=== PATIENT | male | born 1970 | race African-American/Black ===

== ENCOUNTER 2024-11-17 14:46 | Inpatient (IN) | payer OTHER ==
[~2024-11-17] VITALS: Ht 177.8 cm; Wt 73.0 kg
[2024-11-17] MEDS ORDERED: THIAMINE HCL 100 MG TABLET ONE (15:30)
[2024-11-17] MEDS: IV NS 0.9% 1,000 ML BAG IV ONE (15:41)
[2024-11-17] MEDS: IV LR 1000 ML 1,000 ML BAG IV ONE (15:42)
[2024-11-17] MEDS: THIAMINE HCL 100 MG TABLET PO ONE (15:42)
[2024-11-17 15:50] LABS: BASOPHILS # (AUTO) 0.1 K/uL (0.0-0.2); BASOPHILS % (AUTO) 0.9 % (0.0-2.0); EOSINOPHILS % (AUTO) 0.2 % (0.0-6.0); HEMATOCRIT 41 % (39-51); HEMOGLOBIN 14.1 g/dL (13.5-17.5); LYMPHOCYTES # (AUTO) 1.8 K/uL (0.8-4.8); LYMPHOCYTES % (AUTO) 31.6 % (20.0-44.0); MEAN CORPUSCULAR HEMOGLOBIN 33 PG (26.0-33.0); MEAN CORPUSCULAR HGB CONC 34 g/dl (31.0-36.0); MEAN CORPUSCULAR VOLUME 95 fL (80-96); MONOCYTES # (AUTO) 0.6 K/uL (0.1-1.30); MONOCYTES % (AUTO) 10.7 % (2.0-12.0); NEUTROPHILS # (AUTO) 3.2 K/uL (1.8-8.9); NEUTROPHILS % (AUTO) 56.6 % (43.0-81.0); PLATELET COUNT (AUTO) 205 K/uL (150-450); RED BLOOD CELL COUNT(AUTO) 4.32 MIL/uL (4.5-6.0); RED CELL DISTRIBUTION WIDTH 15.6 % (11.5-15.0); WHITE BLOOD COUNT (AUTO) 5.6 K/uL (4.3-11.0)
[2024-11-17 15:59] LABS: CALCIUM, SERUM 8.6 mg/dL (8.5-10.1); CARBON DIOXIDE 27 mmol/L (21-32); CHLORIDE 102 mmol/L (98-107); CREATININE 0.7 mg/dL (0.6-1.3); GLUCOSE 101 mg/dL (74-106); POTASSIUM 3.8 mmol/L (3.5-5.1); SODIUM SERUM 140 mmol/L (136-145); UREA NITROGEN, BLOOD 8 mg/dL (7-18)
[2024-11-17 16:05] LABS: ALANINE AMINOTRANSFERASE 143 U/L (12-78); ALBUMIN 3.9 g/dL (3.4-5.0); ALKALINE PHOSPHATASE 107 U/L (46-116); ASPARTATE AMINOTRANSFERASE 118 U/L (15-37); BILIRUBIN,DIRECT 0.1 mg/dL (0.0-0.2); BILIRUBIN,TOTAL 0.3 mg/dL (0.2-1.0); TOTAL PROTEIN, SERUM 7.4 g/dL (6.4-8.2)
[2024-11-17] MEDS ORDERED: ASPIRIN 81 MG TAB.CHEW ONE (16:29)
[2024-11-17] MEDS ORDERED: FAMOTIDINE/PF INJ 20 MG/2 ML VIAL IV ONE (16:30)
[2024-11-17] MEDS: FAMOTIDINE/PF INJ 20 MG/2 ML VIAL IV ONE (16:39)
[2024-11-17] MEDS: ASPIRIN 81 MG TAB.CHEW PO ONE (16:40)
[2024-11-17] MEDS ORDERED: ACETAMINOPHEN 325 MG TABLET PO PRN (23:30)
[2024-11-17] MEDS ORDERED: LORAZEPAM INJ 2 MG/ML VIAL IV PRN (23:30)
[2024-11-18] MEDS: IV NS 0.9% 1,000 ML IV PRN (00:32)
[2024-11-18 01:15] VITALS: BP 147/77; TEMP 98.4; O2SAT 96
[2024-11-18 04:00] VITALS: BP 169/100; TEMP 98.1; O2SAT 96
[2024-11-18 05:53] LABS: BASOPHILS # (AUTO) 0.1 K/uL (0.0-0.2); BASOPHILS % (AUTO) 0.7 % (0.0-2.0); EOSINOPHILS % (AUTO) 0.7 % (0.0-6.0); HEMATOCRIT 40 % (39-51); HEMOGLOBIN 13.7 g/dL (13.5-17.5); LYMPHOCYTES # (AUTO) 1.6 K/uL (0.8-4.8); LYMPHOCYTES % (AUTO) 22.1 % (20.0-44.0); MEAN CORPUSCULAR HEMOGLOBIN 33 PG (26.0-33.0); MEAN CORPUSCULAR HGB CONC 35 g/dl (31.0-36.0); MEAN CORPUSCULAR VOLUME 96 fL (80-96); MONOCYTES # (AUTO) 0.8 K/uL (0.1-1.30); MONOCYTES % (AUTO) 11.2 % (2.0-12.0); NEUTROPHILS # (AUTO) 4.8 K/uL (1.8-8.9); NEUTROPHILS % (AUTO) 65.3 % (43.0-81.0); PLATELET COUNT (AUTO) 170 K/uL (150-450); RED BLOOD CELL COUNT(AUTO) 4.13 MIL/uL (4.5-6.0); WHITE BLOOD COUNT (AUTO) 7.4 K/uL (4.3-11.0)
[2024-11-18 06:13] LABS: CALCIUM, SERUM 8.9 mg/dL (8.5-10.1); CREATININE 0.5 mg/dL (0.6-1.3); MAGNESIUM 1.7 mg/dL (1.8-2.4); PHOSPHORUS 3.7 mg/dL (2.5-4.9); POTASSIUM 3.5 mmol/L (3.5-5.1)
[2024-11-18 08:00] VITALS: BP 162/98; TEMP 97.9; O2SAT 98
[2024-11-18] MEDS: FOLIC ACID 1 MG TABLET PO SCH (08:07)
[2024-11-18] MEDS: PANTOPRAZOLE 40 MG TABLET.DR PO SCH (08:07)
[2024-11-18] MEDS: THIAMINE HCL 100 MG TABLET PO SCH (08:07)
[2024-11-18] MEDS ORDERED: ATEN25TA PO (08:18)
[2024-11-18] MEDS ORDERED: ALLO100T PO (08:18)
[2024-11-18] MEDS: MAGNESIUM OXIDE 400 MG TABLET PO ONE (11:07)
[2024-11-18] MEDS: ONDANSETRON HCL/PF 4 MG/2 ML VIAL IVP PRN (11:07)
[2024-11-18] MEDS: ATENOLOL 25 MG TABLET PO ONE (11:17)
[2024-11-18 12:00] VITALS: BP 174/97; TEMP 97.3; O2SAT 95
[2024-11-18 16:00] VITALS: BP 143/97; TEMP 97.9; O2SAT 98
[2024-11-18 20:00] VITALS: BP 153/90; TEMP 97.7; O2SAT 97
[2024-11-19] VITALS: BP 155/99; TEMP 97.7; O2SAT 95
[2024-11-19 04:00] VITALS: BP 142/91; TEMP 97.7; O2SAT 97
[2024-11-19 06:52] LABS: BASOPHILS % (AUTO) 0.6 % (0.0-2.0); EOSINOPHILS # (AUTO) 0.1 K/uL (0.0-0.7); EOSINOPHILS % (AUTO) 1.6 % (0.0-6.0); HEMATOCRIT 39 % (39-51); HEMOGLOBIN 13.6 g/dL (13.5-17.5); LYMPHOCYTES # (AUTO) 1.6 K/uL (0.8-4.8); LYMPHOCYTES % (AUTO) 25.2 % (20.0-44.0); MEAN CORPUSCULAR HEMOGLOBIN 34 PG (26.0-33.0); MEAN CORPUSCULAR HGB CONC 35 g/dl (31.0-36.0); MEAN CORPUSCULAR VOLUME 97 fL (80-96); MONOCYTES # (AUTO) 0.9 K/uL (0.1-1.30); MONOCYTES % (AUTO) 14.2 % (2.0-12.0); NEUTROPHILS # (AUTO) 3.7 K/uL (1.8-8.9); NEUTROPHILS % (AUTO) 58.4 % (43.0-81.0); PLATELET COUNT (AUTO) 162 K/uL (150-450); RED BLOOD CELL COUNT(AUTO) 4.04 MIL/uL (4.5-6.0); RED CELL DISTRIBUTION WIDTH 16.1 % (11.5-15.0); WHITE BLOOD COUNT (AUTO) 6.3 K/uL (4.3-11.0)
[2024-11-19 07:04] LABS: CALCIUM, SERUM 8.9 mg/dL (8.5-10.1); CREATININE 0.6 mg/dL (0.6-1.3); MAGNESIUM 1.9 mg/dL (1.8-2.4); PHOSPHORUS 4.1 mg/dL (2.5-4.9); POTASSIUM 3.6 mmol/L (3.5-5.1)
[2024-11-19 08:00] VITALS: BP 137/89; TEMP 98.4; O2SAT 98
[2024-11-19 08:18] VITALS: BP 137/89
[2024-11-19] MEDS: ATENOLOL 25 MG TABLET PO SCH (08:18)
[2024-11-19] MEDS ORDERED: THIA100T74 PO (10:22)
[2024-11-19] MEDS ORDERED: FOLI0.8T3 PO (10:22)
== END 2024-11-19 11:28 | disposition home or self-care (01) | DRG 199 ==
LOC: ER 15:05 → TELE1 22:20
PROVIDERS: ADMIT Nurse Practitioner Acute Care
DX: I16.0 Hypertensive urgency (principal); I21.A1 Myocardial infarction type 2; G92.9 Unspecified toxic encephalopathy; I10 Essential (primary) hypertension; F10.129 Alcohol abuse with intoxication, unspecified; Y90.8 Blood alcohol level of 240 mg/100 ml or more; M19.90 Unspecified osteoarthritis, unspecified site
CPT/HCPCS: 36415; 71045-TC; 80048-TC; 80061-TC; 80076-TC; 83735-TC; 84100-TC; 84484-TC; 85025-TC; 93307-TC; A4223; G0378; G0480; J2405; J3490; J7030; J7120